=== PATIENT | female | born 1940 | race Caucasian/White ===

== ENCOUNTER 2016-05-13 11:10 | Inpatient (IN) | payer OTHER ==
--- NOTE | 2016-05-13 11:42 | PDOC ---
History of Present Illness <Armando Khoury - Last Filed: 05/13/16 14:55> - History of Present Illness Initial Comments: 05/13/16 11:50 The patient is a 75 year old female with a past medical hx of CAD, CVA, pacemaker, high cholesterol, dementia, confusion, seizure who presents to the ED from [facility] complaining of weakness, loss of balance, and altered mental status since yesterday. Per patients niece, she is having difficulty standing up and she is stumbling. She reports patient is able to walk well at baseline. The patients niece notes she has a hx of CVA and reports she is concerned she may have had one. The patient reports dysuria, headache, and cough (productive) . The niece reports the patient is on antibiotics for her cough. The patients niece states she had the flu shot. The patient denies chest pain, chills, fever The patient denies nausea, vomiting, diarrhea Allergies: NKDA PCP: Dr. Roy <Ruby Caban - Last Filed: 05/13/16 16:53> - General Chief Complaint: Shortness of Breath Stated Complaint: SOB,ALTERED MENTAL Time Seen by Provider: 05/13/16 11:41 tPA Exclusion checklist 3-4.5h - Time Elapsed Date last known well: 05/12/16 - Thrombolytic Therapy Candidate Is patient eligible for thrombolytic therapy: No - Exclusion Criteria 3-4.5 hr SBP greater than 185 or DBP greater than 110mmHg despite tx: No Recent IC/spinal surgery,head trauma or stroke<3mos.: No Hx IC hemorrhage, IC neoplasm, AV malformation or aneurysm: No Active internal bleeding: No Blding diathesis(low plt ct, inc PTT,INR>1.7 or use of NOAC): No CT demonstrates multilobar infarct(>1/3 cerebral hemiphere): No Arterial puncture at noncompressible site in previous 7 days: No Blood glucose concentration less than 50mg/dL (2.7mmol/L): No - Relative Exclusion Criteria 3-4.5 hr Life expectancy <1 yr or severe co-morbid illness: No : No Patient/family refused: No Rapid improvement: No Stroke severity too mild: No Recent acute MT (w/in previous 3 months): No Seizure at onset with postictal residual neuro impairments: No Major surgery or serious trauma w/in previous 14 days: No Recent GI or hemorrhage (w/in previous 21 days): No - Add'l Relative Exclusion 3-4.5 hr Age > 80: No Hx of both diabetes AND prior ischemic stroke: Yes Taking an oral anticoagulant regardless of INR: No NIHSS >25: No - Ineligibility reason(s) Reasons No tPA given: Outside of window - delayed arrival (> 24 hours) <Armando Khoury - Last Filed: 05/13/16 14:55> NIH Stroke Scale - Last Known Well Date/Time & Onset Date Last Known Well: 05/12/16 - Initial Evaluation Level of consciousness: Alert Ask patient the month and their age: Answers one correctly Ask patient to open & close eyes; make fist and let go: Obeys both correctly Best gaze (horizontal eye movement): Normal Visual field testing: No visual field loss Facial paresis (Show teeth/raise eyebrows/close eyes tight): Minor paralysis ( flattened nasolabial fold, asymmetry on smiling) Motor Function: Left Arm: Normal Motor Function: Right Arm: Drift Motor Function: Left Leg: Normal (extends leg 30 degrees for 5 seconds without drift) Motor Function: Right Leg: Drift Limb Ataxia: No ataxia Sensory(Use pinprick test arms,legs,trunk,face/side to side): Normal Best language (Describe picture, name items, read sentences): No Aphasia Dysarthria (read several words): Normal articulation Extinction and Inattention: No abnormality - Total Score NIH Stroke Scale Score: 4 <Armando Khoury - Last Filed: 05/13/16 14:55> Past History - Past Medical History Dementia: Yes Hypercholesterolemia: Yes Seizures: Yes - Psycho/Social/Smoking Cessation Hx Suicidal Ideation: No Smoking History: Unknown if ever smoked Have you smoked in the past 12 months: No Hx Alcohol Use: No Substance Use Type: None Hx Substance Use Treatment: No <Armando Khoury - Last Filed: 05/13/16 14:55> <Ruby Caban - Last Filed: 05/13/16 16:53> - Past Medical History Allergies/Adverse Reactions: Allergies Allergy/AdvReac Type Severity Reaction Status Date / Time No Known Allergies Allergy Verified 05/13/16 11:19 Home Medications: Ambulatory Orders Aspirin Coated [Ecotrin -] 81 mg PO DAILY 03/29/16 Cholecalciferol (Vitamin D3) [D3-50] 50,000 unit PO MONTHLY 03/29/16 Clopidogrel Bisulfate [Plavix -] 75 mg PO DAILY 03/29/16 Fluticasone Propionate [Flonase Allergy Relief] 1 spray NS DAILY 03/29/16 Levetiracetam [Keppra -] 250 mg PO BID 03/29/16 Lorazepam [Ativan] 0.5 mg PO BID 03/29/16 Mirtazapine 15 mg PO HS 03/29/16 Omeprazole 20 mg PO AM 03/29/16 Rivastigmine Tartrate [Exelon] 1.5 mg PO BID 03/29/16 Sertraline HCl [Zoloft -] 50 mg PO DAILY 03/29/16 Simvastatin [Zocor -] 20 mg PO HS 03/29/16 Review of Systems - Review of Systems Able to Perform ROS?: Yes Comments:: 05/13/16 11:50 CONSTITUTIONAL: +Weakness. Absent: fever, chills, diaphoresis, malaise, loss of appetite HEENT: Absent: rhinorrhea, nasal congestion, throat pain, throat swelling, difficulty swallowing, mouth swelling, ear pain, eye pain, visual Changes CARDIOVASCULAR: Absent: chest pain, syncope, palpitations, irregular heart rate, lightheadedness , peripheral edema RESPIRATORY: +Cough. Absent: shortness of breath, dyspnea with exertion, orthopnea, wheezing , stridor, hemoptysis GASTROINTESTINAL: Absent: abdominal pain, abdominal distension, nausea, vomiting, diarrhea, constipation, melena, hematochezia GENITOURINARY: +Dysuria. Absent: frequency, urgency, hesitancy, hematuria, flank pain, genital pain MUSCULOSKELETAL: Absent: myalgia, arthralgia, joint swelling SKIN: Absent: rash, itching, pallor HEMATOLOGIC/IMMUNOLOGIC: Absent: easy bleeding, easy bruising, lymphadenopathy, frequent infections ENDOCRINE: Absent: unexplained weight gain, unexplained weight loss, heat intolerance, cold intolerance NEUROLOGIC: +Loss of balance, headache, altered mental status. Absent: focal weakness or paresthesias, dizziness, seizure, bladder or bowel incontinence PSYCHIATRIC: Absent: anxiety, depression, suicidal or homicidal ideation, hallucinations. <Ruby Caban - Last Filed: 05/13/16 16:53> *Physical Exam - Vital Signs Last Vital Signs Temp Pulse Resp BP Pulse Ox 98.3 F 83 24 121/107 99 05/13/16 11:19 05/13/16 11:19 05/13/16 11:19 05/13/16 11:19 05/13/16 11:19 <Jean CarlosdavidkimberlyArmando - Last Filed: 05/13/16 14:55> - Vital Signs Last Vital Signs Temp Pulse Resp BP Pulse Ox 98.3 F 83 24 121/107 99 05/13/16 11:19 05/13/16 11:19 05/13/16 11:19 05/13/16 11:19 05/13/16 11:19 - Physical Exam Comments: 05/13/16 11:51 GENERAL: Well developed, well nourished. Awake and alert. In no acute distress. HEENT: Normocephalic, atraumatic. PERRLA, EOMI. No conjunctival pallor. Sclera are non- icteric. Moist mucous membranes. Oropharynx is clear. NECK: Supple. Full ROM. No JVD. Carotid pulses 2+ and symmetric, without bruits. No thyromegaly. No lymphadenopathy. CARDIOVASCULAR: Regular rate and rhythm. No murmurs, rubs, or gallops. Distal pulses are 2+ and symmetric. PULMONARY: No evidence of respiratory distress. Lungs clear to auscultation bilaterally. No wheezing, rales or rhonchi. ABDOMINAL: +Suprapubic tenderness. Soft. Non-distended. No rebound or guarding. No organomegaly. Normoactive bowel sounds. MUSCULOSKELETAL Normal range of motion at all joints. No bony deformities or tenderness. No CVA tenderness. EXTREMITIES: +Right sided weakness to the upper and lower extremities. No cyanosis. No clubbing. No edema. No calf tenderness. SKIN: Warm and dry. Normal capillary refill. No rashes. No jaundice. NEUROLOGICAL: Alert, awake, appropriate. Cranial nerves 2-12 intact. No deficits to light touch and temperature in face, upper extremities and lower extremities. No motor deficits in the in face, upper extremities and lower extremities. Normoreflexic in the upper and lower extremities. Normal speech. PSYCHIATRIC: Cooperative. Good eye contact. Appropriate mood and affect. <Ruby Caban - Last Filed: 05/13/16 16:53> Heart Score/ECG Review - ECG Impressions Comment:: 05/13/16 14:10 EKG obtained at 11:30 NSR at a rate of 73 bpm <Ruby Caban - Last Filed: 05/13/16 16:53> ED Treatment Course - LABORATORY CBC & Chemistry Diagram: 05/13/16 11:42 05/13/16 11:42 - RADIOLOGY Radiology Studies Ordered: Category Date Time Status CHEST X-RAY PORTABLE* [RAD] Stat Radiology 05/13/16 11:23 Ordered <Armando Khoury - Last Filed: 05/13/16 14:55> - LABORATORY CBC & Chemistry Diagram: 05/13/16 11:42 05/13/16 11:42 - RADIOLOGY Radiograph Interpretation: 05/13/16 12:58 CT Head Impression. No evidence of acute intracranial hemorrhage, edema, midline shift, mass effect , or skull fracture. No CT evidence of acute territorial infarction. Chronic right basal ganglia lacunar infarcts Reported By: Zach Mckeon MD 05/13/16 1225 05/13/16 13:00 Chest X-Ray Impression. No evidence of acute intracranial hemorrhage, edema, midline shift, mass effect , or skull fracture. No CT evidence of acute territorial infarction. Chronic right basal ganglia lacunar infarcts Reported By: Zach Mckeon MD 05/13/16 1225 <Ruby Caban - Last Filed: 05/13/16 16:53> *DC/Admit/Observation/Transfer - Discharge Dispostion Admit: Yes <Armando Khoury - Last Filed: 05/13/16 14:55> - Attestations Scribe Attestion: 05/13/16 11:50 Documentation prepared by Ruby Caban, acting as ophthalmic medical technician for Armando Khoury MD, MD/DO. <Ruby Caban - Last Filed: 05/13/16 16:53> Diagnosis at time of Disposition: TIA (transient ischemic attack) Qualifiers: Transient cerebral ischemia type: unspecified Qualified Code(s): G45.9 - Transient cerebral ischemic attack, unspecified CVA (cerebral vascular accident) Qualifiers: CVA mechanism: unspecified Qualified Code(s): I63.9 - Cerebral infarction, unspecified - Discharge Dispostion Condition at time of disposition: Guarded - Referrals
[2016-05-13 11:58] LABS: BASOPHIL 0.3 % (0-2.0); EOSINOPHIL 1.2 % (0-4.5); MCH 30.5 pg (25.7-33.7); MCHC 32.7 g/dl (32.0-36.0); MEAN CELL VOLUME 93.5 fl (80-96); MEAN PLT VOLUME 8.9 fl (7.5-11.1); NEUTROPHILS 81.1 % (42.8-82.8); PLATELET COUNT 242 K/MM3 (134-434); RDW 14.6 % (11.6-15.6); WHITE BLOOD COUNT 13.4 K/mm3 (4.0-10.0)
[2016-05-13] MEDS: SODIUM CHLORIDE 1,000 ML IV SCH ×2 (12:34→22:54)
[2016-05-13 12:45] LABS: ALBUMIN 3.1 g/dl (3.4-5.0); ALK PHOS 135 U/L (45-117); ANION GAP 2 (8-16); BILIRUBIN,TOTAL 0.6 mg/dL (0.2-1.0); CALCIUM 8.6 mg/dL (8.5-10.1); CO2 28 mmol/L (21-32); CREATININE 0.7 mg/dL (0.55-1.02); GLUCOSE,RANDOM 98 mg/dL (74-106); SGPT/ALT 24 U/L (12-78); TOT PROT 6.6 g/dl (6.4-8.2)
[2016-05-13 12:49] LABS: SGOT/AST 76 U/L (15-37)
[2016-05-13 13:17] LABS: URINE APPEARANCE CLEAR; URINE BILIRUBIN NEGATIVE (NEGATIVE); URINE BLOOD NEGATIVE (NEGATIVE); URINE COLOR LTYELLOW; URINE GLUCOSE (UA) NEGATIVE (NEGATIVE); URINE KETONE NEGATIVE (NEGATIVE); URINE LEUK ESTERASE NEGATIVE (NEGATIVE); URINE NITRITE NEGATIVE (NEGATIVE); URINE PROTEIN NEGATIVE (NEGATIVE); URINE UROBILINOGEN NEGATIVE E.U./dl (0.2-1.0)
--- NOTE | 2016-05-13 13:46 | HP ---
Admitting History and Physical - Primary Care Physician PCP: Vicky Kearns - Admission Chief Complaint: AMS History of Present Illness: ER HISTORY - History of Present Illness Initial Comments: 05/13/16 11:50 The patient is a 75 year old female with a past medical hx of CAD, CVA, pacemaker, high cholesterol, dementia, confusion, seizure who presents to the ED from [facility] complaining of weakness, loss of balance, and altered mental status since yesterday. Per patients niece, she is having difficulty standing up and she is stumbling. She reports patient is able to walk well at baseline. The patients niece notes she has a hx of CVA and reports she is concerned she may have had one. The patient reports dysuria, headache, and cough (productive) . The niece reports the patient is on antibiotics for her cough. The patients niece states she had the flu shot. The patient denies chest pain, chills, fever The patient denies nausea, vomiting, diarrhea Allergies: NKDA PCP: Dr. Kearns PT EXAMINED BY ME IN ER Niece at bedside who is a psychologist by profession- pt at baseline has dementia but is able to ambulate without difficulty. For past week has unsteady gait, ataxic, weakness. Also not talking as much. As per MT doctor-- she was on PO Levaquin for acute sinusitis. Pt awakens when called, not mumbled speech. She follows commands-- but right upper and lower extremities are weaker than left. 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 Cardiovascular: Yes: CAD, HTN, Hyperlipdemia, Other (PPM) Psych: Yes: Other (OCD) - Smoking History Smoking history: Unknown if ever smoked Have you smoked in the past 12 months: No - Alcohol/Substance Use Hx Alcohol Use: No Home Medications - Allergies Allergies/Adverse Reactions: Allergies Allergy/AdvReac Type Severity Reaction Status Date / Time No Known Allergies Allergy Verified 05/13/16 11:19 - Home Medications Home Medications: Ambulatory Orders Aspirin Coated [Ecotrin -] 81 mg PO DAILY 03/29/16 Cholecalciferol (Vitamin D3) [D3-50] 50,000 unit PO MONTHLY 03/29/16 Clopidogrel Bisulfate [Plavix -] 75 mg PO DAILY 03/29/16 Fluticasone Propionate [Flonase Allergy Relief] 1 spray NS DAILY 03/29/16 Levetiracetam [Keppra -] 250 mg PO BID 03/29/16 Lorazepam [Ativan] 0.5 mg PO BID 03/29/16 Mirtazapine 15 mg PO HS 03/29/16 Omeprazole 20 mg PO AM 03/29/16 Rivastigmine Tartrate [Exelon] 1.5 mg PO BID 03/29/16 Sertraline HCl [Zoloft -] 50 mg PO DAILY 03/29/16 Simvastatin [Zocor -] 20 mg PO HS 03/29/16 Review of Systems - Review of Systems Constitutional: denies: Chills, Fever Cardiovascular: denies: Chest Pain, Palpitations, Shortness of Breath Respiratory: denies: Cough, SOB, Wheezing Genitourinary: denies: Burning, Discharge Physical Examination Vital Signs: Vital Signs Temperature 98.3 F 05/13/16 11:19 Pulse Rate 83 05/13/16 11:19 Respiratory Rate 24 05/13/16 11:19 Blood Pressure 121/107 05/13/16 11:19 O2 Sat by Pulse Oximetry (%) 99 05/13/16 11:19 Constitutional: Yes: No Distress, Calm HENT: Yes: Other (facial droop -- right) Cardiovascular: Yes: Regular Rate and Rhythm Respiratory: Yes: Diminished Gastrointestinal: Yes: Normal Bowel Sounds, Soft. No: Distention, Tenderness Edema: No Neurological: Yes: Alert, Weakness (right upper and lower extremities) Psychiatric: Yes: Alert Labs: CBC, BMP 05/13/16 11:42 05/13/16 11:42 Imaging - Results Chest X-ray: Image Reviewed (nodule in right upper lobe- no infiltrate) Cat Scan: Report Reviewed EKG: Image Reviewed (NSR) Problem List - Problems (1) CVA (cerebral vascular accident) Code(s): I63.9 - CEREBRAL INFARCTION, UNSPECIFIED Qualifiers: CVA mechanism: unspecified Qualified Code(s): I63.9 - Cerebral infarction, unspecified (2) CAD (coronary artery disease) Code(s): I25.10 - ATHSCL HEART DISEASE OF [place] CORONARY ARTERY W/O ANG PCTRS (3) Dementia Code(s): F03.90 - UNSPECIFIED DEMENTIA WITHOUT BEHAVIORAL DISTURBANCE (4) Unsteady gait Code(s): R26.81 - UNSTEADINESS ON FEET Assessment/Plan PLAN -- Neurology evaluation -- on ASA and Plavix -- check echo and carotid doppler -- PT eval -- fall precautions -- continue with meds -- check lipid panel -- DVT prophylaxis-- SCD
--- NOTE | 2016-05-13 15:25 | CON.NEURO ---
Consult Consult Specialty:: Carmina Referred by:: Frandy Reason for Consultation:: CVA - History of Present Illness History of Present Illness: 75 woamn with PMH CAD OA HTN CVA Seizure disorder presented with weakness Days of symptoms No fall No headache no CP Poor historian Not TPA candidate ?? 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 Cardio/Vascular: Yes: CAD, HTN, Hyperlipdemia, Other (PPM) Psych: Yes: Other (OCD) - Alcohol/Substance Use Hx Alcohol Use: No - Smoking History Smoking history: Unknown if ever smoked Have you smoked in the past 12 months: No Home Medications - Allergies Allergies/Adverse Reactions: Allergies Allergy/AdvReac Type Severity Reaction Status Date / Time No Known Allergies Allergy Verified 05/13/16 11:19 - Home Medications Home Medications: Ambulatory Orders Aspirin Coated [Ecotrin -] 81 mg PO DAILY 03/29/16 Cholecalciferol (Vitamin D3) [D3-50] 50,000 unit PO MONTHLY 03/29/16 Clopidogrel Bisulfate [Plavix -] 75 mg PO DAILY 03/29/16 Fluticasone Propionate [Flonase Allergy Relief] 1 spray NS DAILY 03/29/16 Levetiracetam [Keppra -] 250 mg PO BID 03/29/16 Lorazepam [Ativan] 0.5 mg PO BID 03/29/16 Mirtazapine 15 mg PO HS 03/29/16 Omeprazole 20 mg PO AM 03/29/16 Rivastigmine Tartrate [Exelon] 1.5 mg PO BID 03/29/16 Sertraline HCl [Zoloft -] 50 mg PO DAILY 03/29/16 Simvastatin [Zocor -] 20 mg PO HS 03/29/16 Family Disease History - Family Disease History Family History: Unable to Obtain Review of Systems - Review of Systems Constitutional: reports: No Symptoms Eyes: reports: No Symptoms HENT: reports: No Symptoms Neurological: reports: Headache, Incoordination, Numbness Physical Exam-Neuro Vital Signs: Vital Signs Temperature 98.3 F 05/13/16 11:19 Pulse Rate 75 05/13/16 14:20 Respiratory Rate 20 05/13/16 14:20 Blood Pressure 130/61 05/13/16 14:20 O2 Sat by Pulse Oximetry (%) 100 01/19/17 14:20 Constitutional: Yes: Well Nourished Neck: Yes: WNL Labs: CBC, BMP 05/13/16 11:42 05/13/16 11:42 - Neuro Exam Level Of Consciousness: Yes: Oriented to Person, Oriented to Place Eyes: Yes: PERRLA Speech: WNL Dominant Hand: Right Cranial Nerves II-XII Intact: No DTR's: 1+ Left Bicep, 1+ Right Bicep, 1+ Left Brachioradialis, 1+ Right Brachioradialis Motor Strength: 3/5: Left Arm, 5/5: Right Arm, Left Leg, Right Leg Imaging - Results Cat Scan: Image Reviewed Problem List - Problems (1) CVA (cerebral vascular accident) Code(s): I63.9 - CEREBRAL INFARCTION, UNSPECIFIED Qualifiers: CVA mechanism: unspecified Qualified Code(s): I63.9 - Cerebral infarction, unspecified (2) Dementia Code(s): F03.90 - UNSPECIFIED DEMENTIA WITHOUT BEHAVIORAL DISTURBANCE (3) Fall Code(s): W19.XXXA - UNSPECIFIED FALL, INITIAL ENCOUNTER Qualifiers: Encounter type: initial encounter Qualified Code(s): W19.XXXA - Unspecified fall, initial encounter (4) Head trauma Code(s): S09.90XA - UNSPECIFIED INJURY OF HEAD, INITIAL ENCOUNTER Qualifiers: Encounter type: initial encounter Qualified Code(s): S09.90XA - Unspecified injury of head, initial encounter Assessment/Plan patient is not a candidate for TPA Questionable results of the CAT scan 1. Continue the antiplatelet treatment 2. Admit to the stroke unit 3. Seizure precautions 4. EEG 5. MRI of the brain with contrast 6. Fall precautions 7. Physical therapy Thank you for [facility] kind referral
--- NOTE | 2016-05-13 15:26 | EKG ---
Test Reason : Blood Pressure : / mmHG Vent. Rate : 073 BPM Atrial Rate : 073 BPM P-R Int : 136 ms QRS Dur : 076 ms QT Int : 402 ms P-R-T Axes : 063 068 075 degrees QTc Int : 442 ms POOR DATA QUALITY, INTERPRETATION MAY BE ADVERSELY AFFECTED NORMAL SINUS RHYTHM NORMAL ECG WHEN COMPARED WITH ECG OF 29-MAR-2016 15:27, NO SIGNIFICANT CHANGE WAS FOUND Confirmed by CORRY JOHNSON, MARIELLA ([id number]) on 05/13/2016 3:25:42 PM Referred By: Confirmed By:MARIELLA WHEATLEY MD
[2016-05-13] MEDS: RIVASTIGMINE TARTRATE 1.5 MG CAPSULE PO SCH (22:48)
[2016-05-13] MEDS: levETIRAcetam 250 MG TABLET (FP) PO SCH (22:48)
[2016-05-13] MEDS: ATORVASTATIN CA 10 MG TABLET (FP) PO SCH (22:48)
[2016-05-13] MEDS: MIRTAZAPINE 15 MG TABLET (FP) PO SCH (22:48)
[2016-05-13 23:25] VITALS: BMI 18.8
[2016-05-14] MEDS: LORazepam 0.5 MG TABLET PO PRN ×3 (00:17→19:06)
[2016-05-14 07:13] LABS: BASOPHIL 0.5 % (0-2.0); EOSINOPHIL 1.4 % (0-4.5); MCH 31.1 pg (25.7-33.7); MCHC 33.4 g/dl (32.0-36.0); MEAN CELL VOLUME 92.9 fl (80-96); MEAN PLT VOLUME 8.8 fl (7.5-11.1); NEUTROPHILS 81.3 % (42.8-82.8); PLATELET COUNT 230 K/MM3 (134-434); RDW 14.5 % (11.6-15.6); WHITE BLOOD COUNT 14.8 K/mm3 (4.0-10.0)
[2016-05-14 07:56] LABS: ALBUMIN 3.3 g/dl (3.4-5.0); ALK PHOS 150 U/L (45-117); ANION GAP 9 (8-16); BILIRUBIN,TOTAL 0.8 mg/dL (0.2-1.0); CALCIUM 8.7 mg/dL (8.5-10.1); CO2 28 mmol/L (21-32); CREATININE 0.5 mg/dL (0.55-1.02); GLUCOSE,RANDOM 94 mg/dL (74-106); SGOT/AST 17 U/L (15-37); SGPT/ALT 18 U/L (12-78); THYROID STIMULATING HORMONE 0.96 uIU/ml (0.358-3.74); TOT PROT 6.1 g/dl (6.4-8.2)
[2016-05-14 09:08] LABS: CHOLESTEROL 166 mg/dL (50-200)
[2016-05-14] MEDS: levETIRAcetam 250 MG TABLET (FP) PO SCH ×2 (09:32→21:24)
[2016-05-14] MEDS: CLOPIDOGREL BISULFATE 75 MG TABLET (FP) PO SCH (09:32)
[2016-05-14] MEDS: SERTRALINE HCL 50 MG TABLET (FP) PO SCH (09:32)
[2016-05-14] MEDS: ASPIRIN COATED 81 MG TABLET.EC PO SCH (09:32)
[2016-05-14] MEDS: LEVOFLOXACIN 500 MG TABLET (FP) PO SCH (09:32)
[2016-05-14 09:46] LABS: LDL CHOLESTEROL (ONLY SJRH) 98 mg/dL (5-100)
--- NOTE | 2016-05-14 09:51 | PN ---
Progress Note (short form) - Note Progress Note: SUBJECTIVE: Patient seen and examined. Chart reviewed. Comfortable. MRI showed acute pontine CVA. Patient denies any pain. OBJECTIVE: Vital Signs - 8 hr 05/14/16 06:00 Temperature 98.3 F Pulse Rate 89 Respiratory 20 Rate Blood Pressure 149/88 Intake & Output 05/13/16 05/14/16 05/14/16 23:59 07:59 15:59 Intake Total 310 Balance 310 Weight 54.431 kg Intake: IV 250 Normal Saline - 1,000 ml 250 @ 125 mls/hr IV ASDIR [facility] Rx#:[id number] Oral 60 Other: Voiding Method Bedpan # Unmeasured Voids Void 2 Bowel Movement No Height 5 ft 7 in Body Mass Index (BMI) 18.8 Weight Measurement Method Estimated by Staff Active Medications Aspirin (Ecotrin -) 81 mg PO DAILY [facility] Last Admin: 05/14/16 09:32 Dose: 81 mg Atorvastatin Calcium (Lipitor -) 10 mg PO [facility] Last Admin: 05/13/16 22:48 Dose: 10 mg Clopidogrel Bisulfate (Plavix -) 75 mg PO DAILY [facility] Last Admin: 05/14/16 09:32 Dose: 75 mg Sodium Chloride (Normal Saline -) 1,000 mls @ 125 mls/hr IV ASDIR [facility] Last Admin: 05/13/16 22:54 Dose: 125 mls/hr Levetiracetam (Keppra -) 250 mg PO BID [facility] Last Admin: 05/14/16 09:32 Dose: 250 mg Levofloxacin (Levaquin -) 500 mg PO DAILY@0600 [facility] Last Admin: 05/14/16 09:32 Dose: 500 mg Lorazepam (Ativan -) 0.5 mg PO BID PRN PRN Reason: ANXIETY Last Admin: 05/14/16 09:32 Dose: 0.5 mg Mirtazapine (Remeron -) 15 mg PO [facility] Last Admin: 05/13/16 22:48 Dose: 15 mg Rivastigmine Tartrate (Exelon (Nf) -) 1.5 mg PO BID [facility] Last Admin: 05/13/16 22:48 Dose: 1.5 mg Sertraline HCl (Zoloft -) 50 mg PO DAILY [facility] Last Admin: 05/14/16 09:32 Dose: 50 mg CBC, BMP 05/14/16 05:38 05/14/16 05:38 Laboratory Results - last 24 hr 05/13/16 05/13/16 05/13/16 11:42 11:42 11:49 WBC 13.4 H RBC 4.72 Hgb 14.4 Hct 44.2 MCV 93.5 MCHC 32.7 RDW 14.6 Plt Count 242 MPV 8.9 Neutrophils % 81.1 Lymphocytes % 10.8 D Monocytes % 6.6 Eosinophils % 1.2 Basophils % 0.3 Sodium 134 L Potassium 5.7 H D Chloride 104 Carbon Dioxide 28 Anion Gap 2 L BUN 17 D Creatinine 0.7 D Creat Clearance w eGFR > 60 POC Glucometer Random Glucose 98 D Calcium 8.6 Total Bilirubin 0.6 AST 76 H D ALT 24 Alkaline Phosphatase 135 H Total Protein 6.6 Albumin 3.1 L Triglycerides Cholesterol Total LDL Cholesterol HDL Cholesterol Vitamin B12 TSH Urine Color Ltyellow Urine Appearance Clear Urine pH 7.0 D Ur Specific [place] 1.018 Urine Protein Negative Urine Glucose (UA) Negative Urine Ketones Negative Urine Blood Negative Urine Nitrite Negative Urine Bilirubin Negative Urine Urobilinogen Negative Ur Leukocyte Esterase Negative RPR Titer 05/13/16 05/14/16 05/14/16 15:15 00:20 05:38 WBC RBC Hgb Hct MCV MCHC RDW Plt Count MPV Neutrophils % Lymphocytes % Monocytes % Eosinophils % Basophils % Sodium 141 Potassium 3.5 D Chloride 104 Carbon Dioxide 28 Anion Gap 9 BUN 11 D Creatinine 0.5 L D Creat Clearance w eGFR > 60 POC Glucometer 92 Random Glucose 94 Calcium 8.7 Total Bilirubin 0.8 D AST 17 D ALT 18 D Alkaline Phosphatase 150 H Total Protein 6.1 L Albumin 3.3 L Triglycerides Cholesterol Total LDL Cholesterol HDL Cholesterol Vitamin B12 1256 H TSH 0.96 Urine Color Urine Appearance Urine pH Ur Specific [place] Urine Protein Urine Glucose (UA) Urine Ketones Urine Blood Urine Nitrite Urine Bilirubin Urine Urobilinogen Ur Leukocyte Esterase RPR Titer 05/14/16 05/14/16 05/14/16 05:38 05:38 05:38 WBC 14.8 H RBC 4.59 Hgb 14.3 Hct 42.7 MCV 92.9 MCHC 33.4 RDW 14.5 Plt Count 230 MPV 8.8 Neutrophils % 81.3 Lymphocytes % 10.3 Monocytes % 6.5 Eosinophils % 1.4 Basophils % 0.5 Sodium Potassium Chloride Carbon Dioxide Anion Gap BUN Creatinine Creat Clearance w eGFR POC Glucometer Random Glucose Calcium Total Bilirubin AST ALT Alkaline Phosphatase Total Protein Albumin Triglycerides 227 H Cholesterol 166 Total LDL Cholesterol 98 HDL Cholesterol 47 Vitamin B12 TSH Urine Color Urine Appearance Urine pH Ur Specific [place] Urine Protein Urine Glucose (UA) Urine Ketones Urine Blood Urine Nitrite Urine Bilirubin Urine Urobilinogen Ur Leukocyte Esterase RPR Titer Nonreactive PHYSICAL EXAMINATION: Constitutional: Yes: No Distress, Calm HENT: Yes: Other (facial droop -- right) Cardiovascular: Yes: Regular Rate and Rhythm Respiratory: Yes: Bilateral breath sounds Gastrointestinal: Yes: Normal Bowel Sounds, Soft. No: Distention, Tenderness Edema: No Neurological: Yes: Alert. Moves all extremities. Psychiatric: Yes: Alert ASSESSMENT & PLAN: - Acute CVA. - Continue Aspirin and Plavix. - MRI noted. - Echocardiogram is okay as well as carotid ultrasound. - Neurology consultation noted and appreciated. - Continue antibiotics for sinusitis. - Continue hydration. - Physical therapy. - Will follow. Problem List - Problems (1) CVA (cerebral vascular accident) Code(s): I63.9 - CEREBRAL INFARCTION, UNSPECIFIED Qualifiers: CVA mechanism: unspecified Qualified Code(s): I63.9 - Cerebral infarction, unspecified (2) CAD (coronary artery disease) Code(s): I25.10 - ATHSCL HEART DISEASE OF [place] CORONARY ARTERY W/O ANG PCTRS (3) Dementia Code(s): F03.90 - UNSPECIFIED DEMENTIA WITHOUT BEHAVIORAL DISTURBANCE (4) Unsteady gait Code(s): R26.81 - UNSTEADINESS ON FEET Documentation prepared by Lyla Keenan, acting as a director of medical staff services for Genoveva Cary MD.
--- NOTE | 2016-05-14 11:20 | CONSULT ---
Admitting History and Physical - Primary Care Physician PCP: Genoveva Cary - Admission History of Present Illness: Per EMR: "History of Present Illness Initial Comments: 05/13/16 11:50 The patient is a 75 year old female with a past medical hx of CAD, CVA, pacemaker, high cholesterol, dementia, confusion, seizure who presents to the ED from [facility] complaining of weakness, loss of balance, and altered mental status since yesterday. Per patients niece, she is having difficulty standing up and she is stumbling. She reports patient is able to walk well at baseline. The patients niece notes she has a hx of CVA and reports she is concerned she may have had one. The patient reports dysuria, headache, and cough (productive) . The niece reports the patient is on antibiotics for her cough. The patients niece states she had the flu shot. The patient denies chest pain, chills, fever The patient denies nausea, vomiting, diarrhea Niece at bedside who is a psychologist by profession- pt at baseline has dementia but is able to ambulate without difficulty. For past week has unsteady gait, ataxic, weakness. Also not talking as much. As per [place] doctor-- she was on PO Levaquin for acute sinusitis. Pt awakens when called, not mumbled speech. She follows commands-- but right upper and lower extremities are weaker than left. 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: Dementia Cardiovascular: Yes: CAD, HTN, Hyperlipdemia, Other (PPM) ...: No Psych: Yes: Other (OCD) - Advance Directives Advance Directives: Yes: Health Care Proxy - Smoking History Smoking history: Unknown if ever smoked Have you smoked in the past 12 months: No - Alcohol/Substance Use Hx Alcohol Use: No History - Admission Reason For Visit: TIA,CVA - Diagnostics X-ray: Report Reviewed CT Scan: Report Reviewed MRI: Report Reviewed - General Mental Status: Awake and Alert, Able to Follow Commands, Forgetful, Confused Attention: Intact Ability to Follow Directions: Fair Head/Neck Control: WFL - Hearing Hearing: Functional Hearing: Normal Speech Evaluation - Communication Primary Language: PERSIAN Communication: Yes: Simple Responses - Speech Production Able to Make Needs Known: Yes: Mildly Impaired Intelligibility: Yes: Mildly Impaired - Speech Characteristics Voice Loudness: Mildly Soft/Quiet Voice Pitch: Yes: Normal Voice Phonatory-based Quality: Yes: Dysphonia (mild) Nasal Resonance: Normal Articulation: Yes: Precise - Language/Auditory Comprehension Follows: Yes: 1 Stage Simple Commands - Memory/Perception skilled nursing Memory: Yes: Severely Impaired Short Term Memory: Yes: Severely Impaired - Swallow Evaluation/Bedside Assessment Current Nutritional Intake: Regular, Thin Liquids, Other (Pt was on reg diet/ thin liquid/ensure at [place]) Oral Secretions: Yes: WFL Dentition: Yes: Missing Teeth Facial Symmetry at Rest: Symmetrical Facial Symmetry on Retraction: Symmetrical Pucker Lips: Normal Lingual Movement: Symmetric Velopharyngeal Movement: Normal Laryngeal Movement: Labored,delay initiation Rate of Intake: WFL Bolus Size: WFL Labial Seal: WFL Oral Prep Time: WFL A-P Transit: WFL Pocketing: None Timing of Swallow: Delayed Coughing/Throat Clear: No (but increased RR after drinking.) Recommendations - Speech Evaluation, Impression/Plan Impression: No cough but increased RR after drinking. r/o silent aspiration in pt with acute NICHOLAS cva. - Disposition Discharge to: Intermediate Facility - Dysphagia Impressions/Plan Dysphagia Impressions: Ongoing Evaluation *Silent aspiration: cannot be R/O at bedside Recommendations: Modified Barium Swallow
[2016-05-14] MEDS: RIVASTIGMINE TARTRATE 1.5 MG CAPSULE PO SCH ×2 (11:44→21:24)
--- NOTE | 2016-05-14 13:21 | PN ---
Progress Note, Physician History of Present Illness: events noted Chart reviewed Seen on telemetry was going for the modified barium swallow MRI of the brain confirmed the presence of left pontine stroke No evidence of bleed Procedure on Keppra Tolerating the aspirin well - Current Medication List Current Medications: Active Medications Aspirin (Ecotrin -) 81 mg PO DAILY [facility] Last Admin: 05/14/16 09:32 Dose: 81 mg Atorvastatin Calcium (Lipitor -) 10 mg PO HS [facility] Last Admin: 05/13/16 22:48 Dose: 10 mg Clopidogrel Bisulfate (Plavix -) 75 mg PO DAILY [facility] Last Admin: 05/14/16 09:32 Dose: 75 mg Sodium Chloride (Normal Saline -) 1,000 mls @ 125 mls/hr IV ASDIR [facility] Last Admin: 05/13/16 22:54 Dose: 125 mls/hr Levetiracetam (Keppra -) 250 mg PO BID [facility] Last Admin: 05/14/16 09:32 Dose: 250 mg Levofloxacin (Levaquin -) 500 mg PO DAILY@0600 [facility] Last Admin: 05/14/16 09:32 Dose: 500 mg Lorazepam (Ativan -) 0.5 mg PO BID PRN PRN Reason: ANXIETY Last Admin: 05/14/16 09:32 Dose: 0.5 mg Mirtazapine (Remeron -) 15 mg PO HS [facility] Last Admin: 05/13/16 22:48 Dose: 15 mg Rivastigmine Tartrate (Exelon (Nf) -) 1.5 mg PO BID [facility] Last Admin: 05/13/16 22:48 Dose: 1.5 mg Sertraline HCl (Zoloft -) 50 mg PO DAILY [facility] Last Admin: 05/14/16 09:32 Dose: 50 mg - Objective Vital Signs: Vital Signs Temperature 98.5 F 05/14/16 10:00 Pulse Rate 76 05/14/16 10:00 Respiratory Rate 20 05/14/16 10:00 Blood Pressure 123/74 05/14/16 10:00 O2 Sat by Pulse Oximetry (%) 96 05/14/16 10:00 Constitutional: Yes: Well Nourished Eyes: Yes: WNL HENT: Yes: WNL Neurological: Yes: Alert, Oriented, Babinski negative ...Motor Strength: WNL Labs: CBC, BMP 05/14/16 05:38 05/14/16 05:38 Problem List - Problems (1) CVA (cerebral vascular accident) Code(s): I63.9 - CEREBRAL INFARCTION, UNSPECIFIED Qualifiers: CVA mechanism: unspecified Qualified Code(s): I63.9 - Cerebral infarction, unspecified (2) Dementia Code(s): F03.90 - UNSPECIFIED DEMENTIA WITHOUT BEHAVIORAL DISTURBANCE (3) Fall Code(s): W19.XXXA - UNSPECIFIED FALL, INITIAL ENCOUNTER Qualifiers: Encounter type: initial encounter Qualified Code(s): W19.XXXA - Unspecified fall, initial encounter (4) Head trauma Code(s): S09.90XA - UNSPECIFIED INJURY OF HEAD, INITIAL ENCOUNTER Qualifiers: Encounter type: initial encounter Qualified Code(s): S09.90XA - Unspecified injury of head, initial encounter Assessment/Plan multiple risk factors for stroke Need antiplatelet treatment Statin Seizure precautions Suggest subacute rehabilitation Fall precautions Tight blood pressure control Results of the EEG
[2016-05-14] MEDS: SODIUM CHLORIDE 1,000 ML IV SCH (13:45)
[2016-05-14] MEDS: ALBUTEROL SO4 2.5/IPRATROPIUM 0.5 INH SOL 3 ML VIAL.NEB. NEB PRN ×2 (16:40→22:17)
[2016-05-14] MEDS ORDERED: PT OWN MED DRAWER 7, Y5N ONE (21:18)
[2016-05-14] MEDS: ATORVASTATIN CA 10 MG TABLET (FP) PO SCH (21:23)
[2016-05-14] MEDS: MIRTAZAPINE 15 MG TABLET (FP) PO SCH (21:24)
[2016-05-15] MEDS: SODIUM CHLORIDE 1,000 ML IV SCH (01:01)
[2016-05-15] MEDS: LEVOFLOXACIN 500 MG TABLET (FP) PO SCH (06:00)
[2016-05-15] MEDS ORDERED: PT OWN MED DRAWER 7, Y5N ONE (08:43)
[2016-05-15] MEDS: SERTRALINE HCL 50 MG TABLET (FP) PO SCH (09:27)
[2016-05-15] MEDS: ASPIRIN COATED 81 MG TABLET.EC PO SCH (09:27)
[2016-05-15] MEDS: CLOPIDOGREL BISULFATE 75 MG TABLET (FP) PO SCH (09:27)
[2016-05-15] MEDS: levETIRAcetam 250 MG TABLET (FP) PO SCH (09:27)
[2016-05-15] MEDS: RIVASTIGMINE TARTRATE 1.5 MG CAPSULE PO SCH (09:29)
--- NOTE | 2016-05-15 09:52 | DS ---
Physical Examination Vital Signs: Vital Signs Temperature 97.4 F L 05/15/16 06:00 Pulse Rate 75 05/15/16 06:00 Respiratory Rate 20 05/15/16 06:00 Blood Pressure 146/63 05/15/16 06:00 O2 Sat by Pulse Oximetry (%) 92 L 05/14/16 21:00 Findings/Remarks: feels well. no complains denies pain. Constitutional: Yes: No Distress, Calm Eyes: Yes: WNL, Conjunctiva Clear Neck: Yes: Supple Cardiovascular: Yes: Regular Rate and Rhythm Respiratory: Yes: CTA Bilaterally Gastrointestinal: Yes: Normal Bowel Sounds, Soft Edema: No Neurological: Yes: Alert Psychiatric: Yes: Alert Labs: CBC, BMP 05/14/16 05:38 05/14/16 05:38 Discharge Summary Reason For Visit: TIA,CVA Current Active Problems CVA (cerebral vascular accident) (Acute) TIA (transient ischemic attack) (Acute) Unsteady gait (Acute) Hospital Course: admitted for ams workup revealed acute left pontine cva neurology followed swallowing eval also done. echo also done -- normal lv function. u/s carotid - ok doing well wbe elevated but on levaquin for sinusitis monitor in skilled nursing overall stable for d/c back to skilled nursing had discussed in detail with pts Niece yesterday and today Meds reconcilled . Discussed with Nursing staff. D/c time 35 min in examining/ documenting/ coordating care Will discuss with correction MD also . Condition: Stable - Instructions Referrals: Vicky Kearns MD [Primary Care Provider] - Disposition: [facility] - Home Medications Comprehensive Discharge Medication List: Ambulatory Orders Aspirin Coated [Ecotrin -] 81 mg PO DAILY 03/29/16 Cholecalciferol (Vitamin D3) [D3-50] 50,000 unit PO MONTHLY 03/29/16 Clopidogrel Bisulfate [Plavix -] 75 mg PO DAILY 03/29/16 Fluticasone Propionate [Flonase Allergy Relief] 1 spray NS DAILY 03/29/16 Levetiracetam [Keppra -] 250 mg PO BID 03/29/16 Lorazepam [Ativan] 0.5 mg PO TID 03/29/16 Mirtazapine 15 mg PO HS 03/29/16 Omeprazole 20 mg PO AM 03/29/16 Rivastigmine Tartrate [Exelon] 1.5 mg PO BID 03/29/16 Sertraline HCl [Zoloft -] 50 mg PO DAILY 03/29/16 Simvastatin [Zocor -] 20 mg PO HS 03/29/16 Albuterol 2.5/Ipratropium 0.5 [Duoneb -] 1 amp NEB Q4H PRN #0 amp 05/15/16 Levofloxacin [Levaquin] 500 mg PO DAILY #5 05/15/16
[2016-05-15] MEDS: ALBUTEROL SO4 2.5/IPRATROPIUM 0.5 INH SOL 3 ML VIAL.NEB. NEB PRN (11:28)
--- NOTE | 2016-05-15 13:43 | PN ---
Progress Note, Physician - Current Medication List Current Medications: Active Medications Albuterol/Ipratropium (Duoneb -) 1 amp NEB Q4H PRN PRN Reason: SHORTNESS OF BREATH Last Admin: 05/15/16 11:28 Dose: 1 amp Aspirin (Ecotrin -) 81 mg PO DAILY [facility] Last Admin: 05/15/16 09:27 Dose: 81 mg Atorvastatin Calcium (Lipitor -) 10 mg PO HS [facility] Last Admin: 05/14/16 21:23 Dose: 10 mg Clopidogrel Bisulfate (Plavix -) 75 mg PO DAILY [facility] Last Admin: 05/15/16 09:27 Dose: 75 mg Levetiracetam (Keppra -) 250 mg PO BID [facility] Last Admin: 05/15/16 09:27 Dose: 250 mg Levofloxacin (Levaquin -) 500 mg PO DAILY@0600 [facility] Last Admin: 05/15/16 06:00 Dose: 500 mg Lorazepam (Ativan -) 0.5 mg PO BID PRN PRN Reason: ANXIETY Last Admin: 05/14/16 19:06 Dose: 0.5 mg Mirtazapine (Remeron -) 15 mg PO HS [facility] Last Admin: 05/14/16 21:24 Dose: 15 mg Rivastigmine Tartrate (Exelon (Nf) -) 1.5 mg PO BID [facility] Last Admin: 05/15/16 09:29 Dose: 1.5 mg Sertraline HCl (Zoloft -) 50 mg PO DAILY [facility] Last Admin: 05/15/16 09:27 Dose: 50 mg - Objective Vital Signs: Vital Signs Temperature 97.4 F L 05/15/16 06:00 Pulse Rate 75 05/15/16 06:00 Respiratory Rate 20 05/15/16 06:00 Blood Pressure 146/63 05/15/16 06:00 O2 Sat by Pulse Oximetry (%) 94 L 05/15/16 09:00 Labs: CBC, BMP 05/14/16 05:38 05/14/16 05:38 Problem List - Problems (1) CVA (cerebral vascular accident) Code(s): I63.9 - CEREBRAL INFARCTION, UNSPECIFIED Qualifiers: CVA mechanism: unspecified Qualified Code(s): I63.9 - Cerebral infarction, unspecified (2) Dementia Code(s): F03.90 - UNSPECIFIED DEMENTIA WITHOUT BEHAVIORAL DISTURBANCE (3) Fall Code(s): W19.XXXA - UNSPECIFIED FALL, INITIAL ENCOUNTER Qualifiers: Encounter type: initial encounter Qualified Code(s): W19.XXXA - Unspecified fall, initial encounter (4) Head trauma Code(s): S09.90XA - UNSPECIFIED INJURY OF HEAD, INITIAL ENCOUNTER Qualifiers: Encounter type: initial encounter Qualified Code(s): S09.90XA - Unspecified injury of head, initial encounter
[2016-05-15 14:36] VITALS: BP 135/70; PULSE 81; TEMP 97.8
== END 2016-05-15 14:54 | DRG 65 ==
LOC: JER 11:10 → JERBED 14:56 → J4S 21:55
PROVIDERS: ADMIT Internal Medicine; ATTEND Internal Medicine
DX: I63.9 Cerebral infarction, unspecified (principal); G40.802 Other epilepsy, not intractable, without status epilepticus; S09.8XXA Other specified injuries of head, initial encounter; I25.10 Atherosclerotic heart disease of native coronary artery without angina pectoris; E78.00 Pure hypercholesterolemia, unspecified; F03.90 Unspecified dementia, unspecified severity, without behavioral disturbance, psychotic disturbance, mood disturbance, and anxiety; F42.8 Other obsessive-compulsive disorder; R26.81 Unsteadiness on feet; Z95.0 Presence of cardiac pacemaker; Z86.73 Personal history of transient ischemic attack (TIA), and cerebral infarction without residual deficits; X58.XXXA Exposure to other specified factors, initial encounter; Y93.89 Activity, other specified; Y92.89 Other specified places as the place of occurrence of the external cause
CPT/HCPCS: 36415; 70450-TC; 70551-TC; 71010-TC; 74230-TC; 80053; 80061; 81003; 82607; 83036; 83721; 83874; 84443; 85025; 85651; 86038; 86593; 86618; 87086; 92611-GN; 93005; 93010; 93306-TC; 93880-TC; 94640; 95816; 97116-GP; 97161-GP; 99283-25